=== PATIENT | male | born 1980 | race Caucasian/White ===

== ENCOUNTER 2017-07-23 06:43 | Day surgery (SDC) | payer OTHER ==
[2017-07-23 07:34] VITALS: O2SAT 98
--- NOTE | 2017-07-23 07:44 | CP.SDSHP ---
Same Day Surgery H & P - History Proposed Procedure: egd/colon Pre-Op Diagnosis: chronic diarrhea/abdo pain - Allergies Allergies: Allergies No Known Allergies Allergy (Verified 07/23/17 07:12) - Physical Exam General Appearance: nl Vital Signs: Vital Signs 07/23/17 07:00 Temperature 97.3 F L Pulse Rate 77 Respiratory 19 Rate Blood Pressure 123/77 O2 Sat by Pulse 98 Oximetry Mental Status: Alert & Oriented x3 Neuro: WNL Heart: WNL Lungs: WNL GI: WNL - {Optional Preform as Required} Abdomen: WNL - Impression Impression: abdo pain, diarrhea Pt. Evaluated Today:Candidate for Anesthesia & Procedure: Yes - Date & Time Date: 07/23/17 Time: 07:44 Short Stay Discharge - Short Stay Discharge Admitting Diagnosis/Reason for Visit: NONINFECTIVE GASTROENTERITIS AND COLITIS, UNSPECIF Disposition: HOME/ ROUTINE
[2017-07-23] MEDS ORDERED: Lactated Ringer's 1,000 ML IV ONE (07:53)
[2017-07-23] MEDS ORDERED: Midazolam 2 MG/2 ML VIAL ONE (07:55)
[2017-07-23] MEDS ORDERED: Propofol 10 mg/ml Inj (20 ML) ONE ×2 (07:55)
[2017-07-23] MEDS ORDERED: Simethicone 40 mg/0.6 ml Liquid (30 ml) ONE (08:16)
[2017-07-23 08:50] VITALS: TEMP 98.6
[2017-07-23 09:08] VITALS: RESP 16
[2017-07-23 12:00] VITALS: BP 104/65; PULSE 77
== END 2017-07-23 09:40 | disposition home or self-care (01) ==
LOC: C.ENDO 06:43
PROVIDERS: ATTEND Internal Medicine
DX: K52.9 Noninfective gastroenteritis and colitis, unspecified (principal); K29.70 Gastritis, unspecified, without bleeding; B96.81 Helicobacter pylori [H. pylori] as the cause of diseases classified elsewhere; K64.8 Other hemorrhoids
CPT/HCPCS: 43239; 45380; 88305; 88313; 88342; J2001; J2250; J2704; J3010; J7120